=== PATIENT | female | born 1945 | race Caucasian/White ===

== ENCOUNTER 2024-06-20 07:04 | Observation (INO) ==
[2024-06-20 07:24] LABS: ABS Basophils 0.2 10^3/uL (0.0-0.1); ABS Eosinophils 0.2 10^3/uL (0.0-0.5); ABS Lymphocytes 3.6 10^3/uL (1.0-4.8); ABS Monocytes 0.8 10^3/uL (0.0-0.9); ABS Nucleated RBC 0.01 10^3/ul; Hematocrit 40.1 % (35-45); Hemoglobin 13.8 g/dL (11.5-14.3); Lymphocyte % 30.8 %; Mean Corpuscular Hemoglobin 32.1 pg (27-33); Mean Corpuscular Hgb Conc 34.4 g/dL (31-36); Mean Corpuscular Volume 93.3 fL (80-97); Mean Platelet Volume 7.8 fL (7.5-11.2); Nucleated Red Blood Cells % 0.1 %/100WBC (0.0-0.8); Platelet Count 242 10^3/uL (150-450); Red Cell Distribution Width 13.8 % (12-17); White Blood Count 11.8 10^3/uL (3.8-11.8)
[2024-06-20 07:39] LABS: INR 1.03 (0.85-1.14)
[2024-06-20 08:04] LABS: Albumin 3.9 g/dL (3.5-5.7); Calcium 8.7 mg/dL (8.6-10.3); Creatinine, Serum 0.74 mg/dL (0.51-0.95); Magnesium 2.2 mg/dL (1.9-2.7); Potassium 3.9 mmol/L (3.5-5.0); Total Bilirubin 0.5 mg/dL (0.2-1.0); Total Protein 5.9 g/dL (6.4-8.9); eGFR CKD-EPI 82.8 (>60)
[2024-06-20 08:59] LABS: High Sensitivity Troponin 1 Hr 28 pg/mL (<15)
[2024-06-20] MEDS ORDERED: Albuterol HFA INHALER 8 gm MDI INH PRN (10:19)
[2024-06-20 10:47] LABS: C Reactive Protein 3.5 mg/L (<8.01)
[2024-06-20 11:03] LABS: TSH Ultra Thyroid Stim Horm 0.26 mcIU/mL (0.34-5.60)
[2024-06-20] MEDS ORDERED: Sulfur Hexaflouride MICROSPHR 25 MG VIAL IV PRN (11:47)
[2024-06-20] MEDS: Enoxaparin 40 MG/0.4 ML SYR SUBCUT SCH (20:45)
[2024-06-20] MEDS: BUDESONIDE/GLYCOPYR/FORMOTEROL MDI (NF) INH SCH (21:38)
[2024-06-20] MEDS: Mometasone/Formoter 100/5 MDI INH PRN (22:35)
[2024-06-21 06:28] LABS: ABS Basophils 0.1 10^3/uL (0.0-0.1); ABS Eosinophils 0.2 10^3/uL (0.0-0.5); ABS Lymphocytes 4.1 10^3/uL (1.0-4.8); ABS Monocytes 0.8 10^3/uL (0.0-0.9); ABS Neutrophils 5.9 10^3/uL (1.5-7.6); ABS Nucleated RBC 0.01 10^3/ul; Eosinophil % 2.1 %; Hematocrit 39.9 % (35-45); Hemoglobin 13.4 g/dL (11.5-14.3); Lymphocyte % 36.6 %; Mean Corpuscular Hemoglobin 31.7 pg (27-33); Mean Corpuscular Hgb Conc 33.7 g/dL (31-36); Mean Platelet Volume 7.9 fL (7.5-11.2); Nucleated Red Blood Cells % 0.1 %/100WBC (0.0-0.8); Platelet Count 236 10^3/uL (150-450); Red Blood Count 4.24 10^6/uL (3.63-4.92); White Blood Count 11.1 10^3/uL (3.8-11.8)
[2024-06-21 06:49] LABS: Calcium 8.7 mg/dL (8.6-10.3); Creatinine, Serum 0.8 mg/dL (0.51-0.95); Magnesium 2.3 mg/dL (1.9-2.7); Potassium 4.4 mmol/L (3.5-5.0); eGFR CKD-EPI 75.4 (>60)
[2024-06-21] MEDS ORDERED: Regadenoson 0.4 MG/5 ML SYRINGE ONE (14:29)
[2024-06-22 06:35] LABS: ABS Basophils 0.1 10^3/uL (0.0-0.1); ABS Eosinophils 0.2 10^3/uL (0.0-0.5); ABS Lymphocytes 3.5 10^3/uL (1.0-4.8); ABS Monocytes 0.8 10^3/uL (0.0-0.9); ABS Neutrophils 5.1 10^3/uL (1.5-7.6); Eosinophil % 2.3 %; Hemoglobin 13.2 g/dL (11.5-14.3); Lymphocyte % 36.5 %; Mean Corpuscular Hemoglobin 31.5 pg (27-33); Mean Corpuscular Hgb Conc 33.9 g/dL (31-36); Mean Corpuscular Volume 92.7 fL (80-97); Platelet Count 240 10^3/uL (150-450); Red Blood Count 4.21 10^6/uL (3.63-4.92); White Blood Count 9.7 10^3/uL (3.8-11.8)
[2024-06-22 06:59] LABS: Calcium 8.5 mg/dL (8.6-10.3); Creatinine, Serum 0.83 mg/dL (0.51-0.95); Magnesium 2.2 mg/dL (1.9-2.7); eGFR CKD-EPI 72.1 (>60)
[2024-06-22] MEDS: FLUTICAS/UMECLI/VILANT 100-62.5-25 MDI (NF) INH SCH (07:11)
[2024-06-22 09:47] VITALS: BP 124/73
== END 2024-06-22 10:57 | disposition home or self-care (01) ==
LOC: ED 07:04 → EDHOLD 07:04 → SUATTDRO 10:16 → MEDTELE 14:48
PROVIDERS: ADMIT Student in an Organized Health Care Education/Training Program; ATTEND Internal Medicine